=== PATIENT | female | born 1940 | race Caucasian/White ===

== ENCOUNTER 2020-10-30 05:42 | Day surgery (SDC) | payer MEDICARE, OTHER ==
[2020-10-29 11:31] LABS: COVID AG,FIA SOURCE NASOPHARYNGEAL
[2020-10-29 11:37] LABS: BASOPHILS % (AUTO) 0.4 % (0.0-2.0); EOSINOPHILS % (AUTO) 1.1 % (1.0-6.0); HEMATOCRIT 37.6 % (36-46); HEMOGLOBIN 12.4 g/dL (12.0-16.0); LYMPHOCYTES # (AUTO) 3.2 K/uL (1.0-4.8); LYMPHOCYTES % (AUTO) 32.8 % (22.0-44.0); MEAN CORPUSCULAR HEMOGLOBIN 30.2 pg (26.0-34.0); MEAN CORPUSCULAR VOLUME 91 fL (80-100); MONOCYTES # (AUTO) 0.6 K/uL (0.1-1.0); MONOCYTES % (AUTO) 6.1 % (2.0-9.0); NEUTROPHILS # (AUTO) 5.8 K/uL (1.8-7.7); NEUTROPHILS % (AUTO) 59.6 % (40.0-70.0); PLATELET COUNT (AUTO) 255 K/uL (150-450); RED BLOOD CELL COUNT(AUTO) 4.12 MIL/uL (4.00-5.20)
[2020-10-29 11:50] LABS: INR 2.4 (0.9-1.1); PROTHROMBIN TIME 23.5 SEC (9.4-11.6)
[2020-10-29 11:51] LABS: CALCIUM, TOTAL 9.8 mg/dL (8.8-10.5); CREATININE 1.04 mg/dL (0.60-1.30); POTASSIUM 4.4 mmol/L (3.5-5.1)
[2020-10-29 11:56] LABS: BILIRUBIN,TOTAL 0.5 mg/dL (0.1-1.0); TOTAL PROTEIN, SERUM 7.7 g/dL (6.4-8.2)
[~2020-10-30] VITALS: Ht 154.9 cm; Wt 73.2 kg
[~2020-10-30 05:42] MED LIST: SODIUM CHLORIDE 0.9% 1,000 ML IV ONE; SODIUM CHLORIDE 0.9% 1,000 ML ONE
[2020-10-30 06:39] LABS: GLUCOMETER DEV NAME(LOC) SDS.; GLUCOSE,POINT OF CARE 188 MG/DL (70-110)
[2020-10-30] MEDS ORDERED: LISI-622 PO (06:56)
[2020-10-30] MEDS ORDERED: GLIP10TA9 PO (06:56)
[2020-10-30] MEDS ORDERED: ALEN70TA80 PO (06:56)
[2020-10-30] MEDS ORDERED: ATOR40TA71 PO (06:56)
[2020-10-30] MEDS ORDERED: TRAV2.5D6 OU (06:56)
[2020-10-30] MEDS ORDERED: CARV12.530 PO (06:56)
[2020-10-30] MEDS ORDERED: FURO40TA5 PO (06:56)
[2020-10-30] MEDS ORDERED: METF-446 PO (06:56)
[2020-10-30] MEDS ORDERED: WARF6TAB49 PO (06:56)
== END 2020-10-30 11:00 | disposition home or self-care (01) ==
LOC: SDS 05:42
PROVIDERS: ATTEND Internal Medicine Cardiovascular Disease
DX: I48.91 Unspecified atrial fibrillation (principal); I10 Essential (primary) hypertension; I25.2 Old myocardial infarction; E78.5 Hyperlipidemia, unspecified; E11.9 Type 2 diabetes mellitus without complications; I25.10 Atherosclerotic heart disease of native coronary artery without angina pectoris; Z79.899 Other long term (current) drug therapy; Z95.2 Presence of prosthetic heart valve; Z98.890 Other specified postprocedural states; Z83.3 Family history of diabetes mellitus; Z80.9 Family history of malignant neoplasm, unspecified; Z87.891 Personal history of nicotine dependence
CPT/HCPCS: 36415; 80053; 82962; 85025; 85610; 85730; 87426; 92960; 93005 ×2; C9803; J7030

== ENCOUNTER 2021-03-12 06:30 | Day surgery (SDC) | payer MEDICARE, OTHER ==
[2021-03-10 08:44] LABS: COVID AG,FIA SOURCE NASOPHARYNGEAL
[2021-03-10 08:46] LABS: BASOPHILS % (AUTO) 0.5 % (0.0-2.0); EOSINOPHILS % (AUTO) 3.7 % (1.0-6.0); HEMATOCRIT 36.4 % (36-46); LYMPHOCYTES # (AUTO) 2.6 K/uL (1.0-4.8); LYMPHOCYTES % (AUTO) 33.2 % (22.0-44.0); MEAN CORPUSCULAR HEMOGLOBIN 30.4 pg (26.0-34.0); MEAN CORPUSCULAR VOLUME 92 fL (80-100); MONOCYTES # (AUTO) 0.5 K/uL (0.1-1.0); MONOCYTES % (AUTO) 6.2 % (2.0-9.0); NEUTROPHILS # (AUTO) 4.4 K/uL (1.8-7.7); NEUTROPHILS % (AUTO) 56.4 % (40.0-70.0); PLATELET COUNT (AUTO) 268 K/uL (150-450); RED BLOOD CELL COUNT(AUTO) 3.95 MIL/uL (4.00-5.20); RED CELL DISTRIBUTION WIDTH 14.5 % (11.5-14.5)
[2021-03-10 09:00] LABS: CALCIUM, TOTAL 9.5 mg/dL (8.8-10.5); CREATININE 1.28 mg/dL (0.60-1.30); POTASSIUM 4.2 mmol/L (3.5-5.1)
[2021-03-10 09:02] LABS: PROTHROMBIN TIME 37.7 SEC (9.4-11.6)
[2021-03-10 09:06] LABS: ALBUMIN 4.1 g/dL (3.4-5.0); BILIRUBIN,TOTAL 0.4 mg/dL (0.1-1.0); TOTAL PROTEIN, SERUM 7.3 g/dL (6.4-8.2)
[~2021-03-12] VITALS: Ht 165.1 cm; Wt 72.7 kg
[~2021-03-12 06:30] MED LIST changes: +ALEN70TA80 PO; +AMIO200T68 PO; +ATOR40TA71 PO; +CARV12.530 PO; +FURO40TA5 PO; +LISI-809 PO; +METF-446 PO; +PANT-31 PO; +SERT-158 PO; -SODIUM CHLORIDE 0.9% 1,000 ML IV ONE; -SODIUM CHLORIDE 0.9% 1,000 ML ONE; +TRAV2.5D6 OU; +WARF6TAB49 PO
[2021-03-12] MEDS ORDERED: PROPOFOL 1% 20 ML VIAL IVP ONE (06:31)
[2021-03-12] MEDS ORDERED: SODIUM CHLORIDE 0.9% 1,000 ML ONE (06:42)
[2021-03-12 09:37] VITALS: BP 176/91
[2021-03-12 09:52] LABS: GLUCOMETER DEV NAME(LOC) SDS.; GLUCOSE,POINT OF CARE 161 MG/DL (70-110)
[2021-03-12 09:58] VITALS: BP 123/53
== END 2021-03-12 10:55 | disposition home or self-care (01) ==
LOC: SDS 06:30
PROVIDERS: ATTEND Internal Medicine Cardiovascular Disease
DX: I48.91 Unspecified atrial fibrillation (principal); I25.2 Old myocardial infarction; E11.9 Type 2 diabetes mellitus without complications; Z79.899 Other long term (current) drug therapy; I42.9 Cardiomyopathy, unspecified; Z95.4 Presence of other heart-valve replacement; Z98.890 Other specified postprocedural states
CPT/HCPCS: 36415; 80053; 82962; 85025; 85610; 85730; 87426; 92960; 93005; C9803; J2704; J7030